=== PATIENT | male | born 1985 | race Caucasian/White ===

== ENCOUNTER 2020-09-01 14:26 | Emergency (ER) | payer OTHER, SELFPAY ==
[2020-09-01 14:30] VITALS: BP 148/79; PULSE 74; RESP 20; TEMP 36.7; O2SAT 97; BMI 30.7
--- NOTE | 2020-09-01 14:53 | HMH.EDUTC ---
[facility] [place] Clinical Impression: Exposure to COVID-19 virus Disposition: Home, Self-Care Condition on Discharge: Good Instructions: Preventing the Spread of Coronavirus Discharge Instructions Additional Instructions: Drink plenty of fluids. Take tylenol or ibuprofen for pain or fever. Take the medications as directed. Follow up with your regular doctor. GO TO THE ER FOR ANY WORSENING SYMPTOMS Referrals: PCP,No [Primary Care Provider] - Time of Disposition: 14:55 Medical Decision Making - Medical Records Medical records reviewed: No: I reviewed the patient's medical records. - Clif Inquiry Pt receiving controlled substance: No Vital Signs: 09/01/20 14:30 09/01/20 15:02 Temperature 98.0 F 98.0 F Temperature Source Oral Pulse Rate 74 Pulse Rate [Right Brachial] 74 Respiratory Rate 20 20 Blood Pressure 148/79 H Blood Pressure [Right Arm] 148/79 H Blood Pressure Mean [Right Arm] 102 Blood Pressure Source [Right Arm] Automatic Cuff Blood Pressure Position [Right Arm] Sitting 02 Sat by Pulse Oximetry 97 Oxygen Delivery Method Room Air [facility] [place] - General Stated complaint: covid test Time Seen by Provider: 09/01/20 14:53 Mode of Arrival: Ambulatory Source of Information: Patient Limitations: No Limitations Description of Symptoms (Recalled from Triage Doc. by RN): PATIENT NEEDING COVID TEST FOR TRAVEL. DENIES EXPOSURE OR SYMPTOMS HEENT Symptoms (Recalled from RN notes): No Resp Symptoms (Recalled from RN notes): No Skin Symptoms (Recalled from RN notes): No MS Symptoms (Recalled from RN notes): No Functional Status (Recalled from RN notes): WNL - History of Present Illness Provider Complaint: He needs a covid test because he has to travel in a couple of days. - Related Data Previous Rx's Medication Instructions Recorded Amoxicillin/Potassium Clav 1 tab PO Q12H 10 Days #20 tab 07/15/19 [Augmentin 875-125 Tablet] predniSONE [Prednisone 20mg 20 mg PO BID 3 Days #6 tab 07/15/19 Tab] Allergies Allergy/AdvReac Type Severity Reaction Status Date / Time No Known Allergies Allergy Verified 07/15/19 10:26 - Worker's Comp Is this a Worker's Comp case?: No [facility] History - Hepatitis A Screen Drug use history?: No High risk sexual behaviors?: No History of sexually transmitted infection?: No Currently employed?: No Childcare worker?: No Do you have indoor plumbing?: Yes Do you have electricity?: Yes Attestation statement:: This patient has been screened for Hepatitis A risk factors. I have reviewed the patient's past medical history: Yes - Social History Smoking Status: Never smoker Tobacco Type: smokeless tobacco # Packs/Day (cigarettes): 0 Alcohol Intake: never Occupational Status: other ROS Obtained: Yes All systems reviewed & no additional complaints - Constitutional Constitutional: Reports system reviewed and no additional complaints, except as docu - Eyes Eyes: Reports system reviewed and no additional complaints, except as docu - ENT Ears, Nose, Mouth, and Throat: Reports system reviewed and no additional complaints, except as docu - Cardiovascular Cardiovascular: Reports system reviewed and no additional complaints, except as docu - Respiratory Respiratory: Reports system reviewed and no additional complaints, except as docu - Gastrointestinal Gastrointestingal: Reports: system reviewed and no additional complaints, except as docu Physical Exam - General General appearance: alert, in no apparent distress - Head Head exam: atraumatic, normocephalic, normal inspection - Eye Eye exam: Present: normal appearance, PERRL, EOMI - ENT ENT exam: Present: normal exam, normal oropharynx, mucous membranes moist, TM's normal bilaterally, normal external ear exam - Neck Neck exam: Present: normal inspection, full ROM, trachea midline. Absent: meningismus, lymphadenopathy - Chest Chest inspection: Present: normal insp
[2020-09-01 15:02] VITALS: BP 148/79; PULSE 74; RESP 20; TEMP 36.7; O2SAT 97
== END 2020-09-01 15:05 | disposition home or self-care (01) ==
PROVIDERS: Emergency Provider Nurse Practitioner Family
DX: Z20.822 Contact with and (suspected) exposure to COVID-19 (principal)
CPT/HCPCS: 99202; G0463; U0003

== ENCOUNTER → 2021-07-19 12:54 | Outpatient (CLI) | payer OTHER, SELFPAY | PROVIDERS: Visit Provider Nurse Practitioner | DX: Z20.822 Contact with and (suspected) exposure to COVID-19 (principal) | CPT/HCPCS: C9803; U0003; U0005 ==

== ENCOUNTER → 2022-04-10 06:15 | Outpatient (CLI) | payer SELFPAY ==
[2022-04-10 18:30] LABS: Basophils # 0.1 K/mm3 (0-0.2); Basophils % 1.7 % (0.1-2.0); Eosinophils # 0.1 K/mm3 (0.0-0.4); Eosinophils % 1.9 % (0.1-12.0); Hematocrit 44.3 % (42.0-52.0); Hemoglobin 14.8 g/dL (14.1-18.0); Lymphocytes # 2.1 K/mm3 (0.7-4.5); Lymphocytes % 33.6 % (10-50); Mean Corpuscular HGB Conc 33.4 g/dL (31.8-35.4); Mean Corpuscular Hemoglobin 31.5 pg (27.0-31.2); Mean Corpuscular Volume 94.5 fl (80-94); Mean Platelet Volume 9.1 fl (7.4-10.4); Monocytes # 0.4 K/mm3 (0.1-1.0); Monocytes % 6.6 % (1.7-9.3); Neutrophils # 3.5 K/mm3 (1.8-7.8); Neutrophils % 56.1 % (37.0-80.0); Platelet Count 203 K/mm3 (142-424); Red Blood Count 4.69 M/mm3 (4.60-6.20); Red Cell Distribution Width 13.2 % (11.5-17.5); White Blood Count 6.2 K/mm3 (4.8-10.8)
[2022-04-10 18:35] LABS: Alanine Aminotransferase 17 U/L (12-78); Albumin Level 3.2 g/dl (3.5-5.0); Albumin/Globulin Ratio 1.5 (1.1-1.8); Alkaline Phosphatase 68 U/L (38-126); Anion Gap 9.1 mEq/L (5-15); Aspartate Amino Transferase 24 U/L (17-59); Bilirubin,Total 0.3 mg/dl (0.2-1.3); Blood Urea Nitrogen 16 mg/dl (9-20); Calcium 8.9 mg/dl (8.4-10.2); Carbon Dioxide 29 mmol/L (22.0-30.0); Chloride 105 mmol/L (98-107); Estimated Glomerular Filt Rate 95 ml/min (>60); GFR (African American) 115 ML/MIN (>60); Globulin 2.1 g/dL (1.3-3.2); Glucose 87 mg/dl (74-100); Potassium 4.1 mmoL/L (3.5-5.1); Sodium 139 mmol/L (136-145); Total Protein,Serum 5.3 g/dl (6.3-8.2); Uric Acid 6.9 mg/dl (3.5-8.5)
[2022-04-10 19:02] LABS: Erythrocyte Sedimentation Rate 11 mm/hr (0-15)
[2022-04-12 12:34] LABS: RA Latex Turbid. <10.0 IU/mL (<14.0)
[2022-04-13 14:13] LABS: Antinuclear Antibodies, IFA Negative (.)
== END ==
PROVIDERS: PCP Nurse Practitioner; Visit Provider Nurse Practitioner
DX: E79.0 Hyperuricemia without signs of inflammatory arthritis and tophaceous disease (principal)
CPT/HCPCS: 80053; 84550; 85025; 85651; 86038; 86431

== ENCOUNTER → 2022-05-08 09:14 | Outpatient (CLI) | payer SELFPAY ==
[2022-05-08 19:17] LABS: Anion Gap 12.1 mEq/L (5-15); Blood Urea Nitrogen 13 mg/dl (9-20); Calcium 9.1 mg/dl (8.4-10.2); Carbon Dioxide 28 mmol/L (22.0-30.0); Chloride 103 mmol/L (98-107); Estimated Glomerular Filt Rate 109 ml/min (>60); GFR (African American) 132 ML/MIN (>60); Glucose 92 mg/dl (74-100); Potassium 4.1 mmoL/L (3.5-5.1); Sodium 139 mmol/L (136-145); Uric Acid 7.7 mg/dl (3.5-8.5)
== END ==
PROVIDERS: PCP Nurse Practitioner; Visit Provider Nurse Practitioner
DX: E79.0 Hyperuricemia without signs of inflammatory arthritis and tophaceous disease (principal)
CPT/HCPCS: 80048; 84550

== ENCOUNTER → 2022-05-18 09:03 | Outpatient (CLI) | payer SELFPAY ==
--- NOTE | 2022-05-18 09:07 | XR_ITS ---
FINAL REPORT CLINICAL HISTORY: Gout/Pain FINDINGS: LEFT FOOT Three views of the left foot demonstrate no acute fracture or dislocation. There is mild hallux valgus deformity. The joint spaces are preserved. There is small plantar calcaneal spur. There is no bony erosion. No soft tissue masses identified. IMPRESSION: No acute bony abnormality. Reviewed, Interpreted and Dictated by Chris Mckenna III, MD Transcribed by Berta Eng Authenticated and [facility]
--- NOTE | 2022-05-18 09:07 | XR_ITS ---
FINAL REPORT CLINICAL HISTORY: Gout/pain FINDINGS: 2 views of the right foot were obtained. There is no acute fracture or dislocation. There is mild hallux valgus deformity. There is a small plantar calcaneal spur. There is no soft tissue abnormality. IMPRESSION: No acute process. Reviewed, Interpreted and Dictated by Chris Mckenna III, MD Transcribed by Enrique Abreu Authenticated and [facility]
== END ==
LOC: LAB 09:04 → RAD 09:04
PROVIDERS: PCP Nurse Practitioner; Visit Provider Nurse Practitioner
DX: M79.671 Pain in right foot (principal); M79.672 Pain in left foot; E79.0 Hyperuricemia without signs of inflammatory arthritis and tophaceous disease
CPT/HCPCS: 73620